=== PATIENT | female | born 1965 | race Caucasian/White ===

== ENCOUNTER 2022-03-30 10:49 | Emergency (ER) | payer BC, OTHER ==
[~2022-03-30] VITALS: Ht 157.5 cm; Wt 77.1 kg
[2022-03-30 10:53] VITALS: BP 127/72
--- NOTE | 2022-03-30 11:22 | NUR ---
PATIENT PRESENTS TO ED WITH RIGHT LEG PAIN . DENIES N/V/D; SKIN IS PINK/WARM/DRY; AAOX4 WITH EVEN AND STEADY GAIT; LUNGS CLEAR BL; HR EVEN AND REGULAR; PT DENIES ANY FEVER, CP, SOB, OR COUGH AT THIS TIME; PATIENT STATES PAIN OF 7/10 AT THIS TIME; VSS; PATIENT POSITIONED FOR COMFORT; HOB ELEVATED; BEDRAILS UP X2; BED DOWN. ER MD MADE AWARE OF PT STATUS.
[2022-03-30] MEDS ORDERED: KETOROLAC 60 MG/2 ML VIAL IM ONE (11:55)
[2022-03-30] MEDS ORDERED: HYDROcodone/APAP 5/325 MG 1 TAB TAB PO ONE (11:55)
[2022-03-30] MEDS ORDERED: ACET-8905 PO (13:08)
--- NOTE | 2022-03-30 13:35 | NUR ---
Patient discharged with v/s stable. Written and verbal after care instructions given and explained. Patient educated on the safe use of crutches. Patient alert, oriented and verbalized understanding of instructions. All questions addressed prior to discharge. ID band removed. Patient advised to follow up with PMD. Rx of [place] given. Patient educated on indication of medication including possible reaction and side effects. Opportunity to ask questions provided and answered.
[2022-03-30 13:36] VITALS: BP 129/68
== END 2022-03-30 13:36 | disposition home or self-care (01) ==
LOC: MED 10:49
DX: M65.28 Calcific tendinitis, other site (principal)
CPT/HCPCS: 73502; 96372; 99283; J1885